=== PATIENT | male | born 1975 | race Caucasian/White ===

== ENCOUNTER → 2016-04-26 | Outpatient (CLI) | payer OTHER ==
[~2016-04-26] MED LIST: BUPR100T6 PO; IOHEXOL 180 MG/ML 10 ML VIAL. ONE; MELO-150 PO; SERT100T PO; methylPREDNISolone ACETATE 40 MG/ML VIAL. ONE; methylPREDNISolone ACETATE 80 MG/ML VIAL. ONE
--- NOTE | 2016-04-26 10:13 | PAIN ---
DATE OF SERVICE: 04/26/2016 PROGRESS NOTE DIAGNOSES: Lumbar radiculopathy with lumbar degenerative disk disease, lumbar spondylosis and post-lumbar laminectomy syndrome. HISTORY OF PRESENT ILLNESS: The patient is a 40-year-old male who returns for followup status post caudal approach epidural steroid injection x 1 on 04/12/2016. The patient reports he did very well about 50% improvement, still some pain in the low back and right leg, but only very minimal compared to what it was before. The patient reports his pain anywhere from a 2 to 4 on a scale of 10, increased his activity with greater ease and comfort during the day, is sleeping better at night, generally getting around with much more ease and ability. The patient reports no new motor or sensory deficits, no new bowel or bladder incontinence, is very pleased with his progress thus far, still has some significant pain, however, in the low back and right posterior gluteus and posterior thigh. The patient's old chart was reviewed as his current medication regimen updated. Current review of systems updated today as well. PHYSICAL EXAMINATION: VITAL SIGNS: Today, the patient's blood pressure is 160/92, pulse , respirations 18, temperature 97.6 degrees Fahrenheit, height is 5 feet 10 inches, and weighs 250 pounds. GENERAL: The patient is awake, alert, oriented, appropriate, very pleasant demeanor. HEENT: Shows normocephalic, atraumatic. Extraocular movements are intact and symmetrical. Oral cavity shows mucous membranes moist and pink. NECK: Shows anterior throat supple. Swallow reflex is symmetrical. CHEST: Shows breath sounds clear to auscultation bilaterally. HEART: Shows S1 and S2 clear. ABDOMEN: Soft, nontender, and nondistended. BACK: Shows spine grossly in midline. Well-healed surgical scar is noted in the lumbar distribution. Lumbar paraspinous musculature shows some moderate tenderness to palpation, but only diffusely bilaterally in the lower lumbar distribution and is symmetrical. LUNGS: No tenderness over the sacrum or sacroiliac regions. EXTREMITIES: Lower extremities show deep tendon reflexes 2+ in the patellar tendons. Motor exam is strong with 5/5 dorsiflexion and extension bilaterally. PLAN: Options were discussed with the patient. We will proceed with a second caudal approach epidural steroid injection today with fluoroscopic guidance. Risks were again discussed including, but not limited to bleeding, infection, possibility of epidural hematoma and subsequent neurologic compromise, dural puncture, headaches, spinal cord and/or nerve damage, side effects of steroid medication and poor results regarding pain control. The patient understands and wished to proceed. The patient will return to clinic in approximately 2 weeks for followup. He was counseled on his return appointment, activity level and side effects to be aware of. DIAGNOSES: Lumbar radiculopathy with lumbar degenerative disk disease, spondylosis and post-laminectomy syndrome. PROCEDURE: Caudal approach epidural steroid injection with fluoroscopic guidance under sterile prep and drape using local anesthetic. MEDICATIONS INJECTED: 120 mg of Depo-Medrol plus 10 mL of preservative-free normal saline and 2 mL of Isovue for contrast. CONDITION AT DISCHARGE: Stable. The patient tolerated the procedure well, had no complications. ASHLEY GARCIA MD DR: TRAM/mayra JOB#: [id number] / [id number]
== END | disposition home or self-care (01) ==
LOC: PNCL 08:53
PROVIDERS: ATTEND Anesthesiology
DX: M51.16 Intervertebral disc disorders with radiculopathy, lumbar region (principal); M47.896 Other spondylosis, lumbar region
CPT/HCPCS: 62311; J1030; J1040

== ENCOUNTER → 2016-08-25 | Outpatient (CLI) | payer OTHER ==
--- NOTE | 2016-08-25 10:09 | PN ---
DATE: 08/25/2016 PROGRESS NOTE FOR PAIN CLINIC DIAGNOSES: Lumbar radiculopathy with lumbar spondylosis, degenerative disk disease and post-lumbar laminectomy syndrome. HISTORY OF PRESENT ILLNESS: The patient is a 40-year-old male who returns for followup status post caudal approach epidural steroid injections x 2, last seen on 04/26/2016. The patient did very well with about a 90% improvement in the low back and left lower extremity pain. The patient reports over the past 3-4 weeks, the pain is beginning to return in the low back posterior hip laterally into the posterior thigh and into the posterolateral calf into the foot on the left side. The patient reports it aching, sharp, stabbing, tingling and becoming more constant. The patient rates it anywhere from a 5 to a 9 on a scale of 10, worse with activity. He has been doing better with lying down, although it is not waking him from sleep at night, better with sitting, worse with walking or standing. The patient has been trying to lose some weight. He has been getting more active and feels this may have had something to do with the increase in pain. He has been exercising and using a treadmill more often. The patient reports otherwise no new motor or sensory deficits, no new bowel or bladder incontinence or other complaints. PHYSICAL EXAMINATION: VITAL SIGNS: Today, the patient's blood pressure is 134/83, pulse 87, respirations are 20, temperature is 97.9 degrees Fahrenheit. Height is 5 feet 10 inches, weight is 239 pounds. GENERAL: The patient is awake, alert, oriented, appropriate, has a very pleasant demeanor. HEENT: Head shows normocephalic, atraumatic. Extraocular movements are intact and symmetrical. Oral cavity shows mucous membranes moist and pink. Dentition intact. NECK: Shows anterior throat supple without palpable lymphadenopathy noted. Swallow reflex is symmetrical. CHEST: Shows normal on inspection. Breath sounds are clear to auscultation bilaterally. HEART: Shows S1 and S2 clear. ABDOMEN: Soft, nontender, nondistended. No palpable organomegaly is noted. No rebound or guarding demonstrated. BACK: Shows spine grossly in the midline. Well-healed surgical scars noted in the lumbar distribution. Lumbar paraspinous musculature is symmetrical on inspection. With palpation it shows some very minor tenderness with palpation in the middle and low paraspinous musculature diffusely without radiation. EXTREMITIES: The patient's lower extremities showed deep tendon reflexes 2+ in the patellar, 1+ tendo calcaneus tendons are equal. Motor exam is strong with 5/5 dorsiflexion, extension, quadriceps and hamstring flexion and symmetrical. Options were discussed with the patient. We will proceed with a third in the series caudal approach epidural steroid injection with fluoroscopic guidance. Risks were again discussed including, but not limited to bleeding, infection, possibility of epidural hematoma, subsequent neurologic compromise, dural puncture, headaches, spinal cord and/or nerve damage, side effects of steroid medication and poor results regarding pain control. The patient understands and wishes to proceed. The patient will return to clinic in approximately 2 weeks for followup, was counseled on return appointment, activity level and side effects to be aware of. DIAGNOSES: Lumbar radiculopathy with lumbar spondylosis, degenerative disk disease and post-lumbar laminectomy syndrome. PROCEDURE: Caudal approach epidural steroid injection using C-arm fluoroscopic guidance under sterile prep and drape using local anesthetic. Medications injected is 120 mg Depo-Medrol plus 10 mL of preservative-free normal saline and 2 mL of Isovue for contrast. CONDITION AT DISCHARGE: Stable. The patient tolerated the procedure well, had no complications. ASHLEY GARCIA MD DR: TRAM/mayra JOB#: [id number] / [id number]
== END | disposition home or self-care (01) ==
LOC: PNCL 07:30
PROVIDERS: ATTEND Anesthesiology
DX: M51.16 Intervertebral disc disorders with radiculopathy, lumbar region (principal); M47.26 Other spondylosis with radiculopathy, lumbar region; M96.1 Postlaminectomy syndrome, not elsewhere classified
CPT/HCPCS: 62323; J1030; J1040

== ENCOUNTER → 2018-02-27 | Outpatient (CLI) | payer OTHER ==
[~2018-02-27] MED LIST changes: -MELO-150 PO; +MELO15TA23 PO
--- NOTE | 2018-02-28 00:34 | PAIN ---
DATE OF SERVICE: 02/27/2018 PROGRESS NOTE FOR PAIN CLINIC DIAGNOSES: Lumbar radiculopathy with lumbar degenerative disk disease and lumbar spondylosis and post-lumbar laminectomy syndrome. HISTORY OF PRESENT ILLNESS: The patient is a 42-year-old male who returns for followup status post caudal epidural steroid injection x 1 on 01/02/2018. The patient did very well about 80% improvement with day-to-day activities after that, riding motorcycle, also fell off of his roof out of his hammock and the pain returned fairly quickly by about a month ago. The patient reports pain is in the low back into the left side, left lower extremity, mostly in the posterior gluteus, posterior thigh, occasionally in the lower leg but mostly in the upper part of the leg. The patient reports it is aching, sharp, stabbing, tingling, shooting, constant, becoming more noticeable with walking, standing, changing positions, better with sitting down or lying but does awaken him from sleep occasionally if he is on his left side. The patient reports not every night. The patient reports his pain is an 8 on scale of 10 at its worst, it is from a 5 to an 8 on average and a 3 at its least and is a 7 today. The patient reports no new motor or sensory deficits and no new bowel or bladder incontinence or other complaints. PHYSICAL EXAMINATION: VITAL SIGNS: The patient's blood pressure 149/74, pulse is 96, respirations are 18 and temperature 98.1 degrees Fahrenheit. Height is 5 feet 10 inches and weight is 235 pounds. GENERAL: The patient is awake, alert, oriented, appropriate and very pleasant demeanor. HEENT: Head shows normocephalic and atraumatic. Extraocular movements are intact and symmetrical. Oral cavity: Mucous membranes moist and pink. Dentition is intact. NECK: Shows anterior throat supple without palpable lymphadenopathy noted. Swallow reflex symmetrical. CHEST: Shows normal on inspection. Breath sounds clear to auscultation bilaterally. HEART: Shows S1 and S2 clear. No murmurs auscultated. ABDOMEN: Soft, nontender and nondistended. No palpable organomegaly is noted. No rebound or guarding demonstrated. BACK: Shows spine grossly in the midline. Normal appearing thoracic kyphosis and minor flattening of the lumbar lordotic curvature with well-healed surgical scar noted. Lumbar paraspinous musculature shows symmetrical on inspection, with palpation shows some mild tenderness throughout the upper, middle, lower distribution of the paraspinous muscles but without radiation. EXTREMITIES: The patient's lower extremities show deep tendon reflexes 2+ in the patella, 1+ tendo-calcaneus tendons are equal. Motor exam is strong with 5/5 dorsiflexion, extension, quadriceps and hamstring flexion. Peripheral pulses are 1+, posterior tibia. No peripheral edema is noted bilaterally. Options were discussed with the patient. The patient's old chart was reviewed as well as his current medication regimen updated. Current review of systems updated today as well. We will proceed with a second in the series caudal approach epidural steroid injection today with fluoroscopic guidance. Risks were again discussed including, but not limited to bleeding, infection, possibility of epidural hematoma and subsequent neurological compromise, dural puncture, headaches, spinal cord and/or nerve damage, side effects of steroid medication and poor results regarding pain control. The patient understands and wished to proceed. The patient will return to the clinic in approximately 2 weeks for followup, was counseled as to return appointment, activity level and side effects to be aware of. DIAGNOSES: Lumbar radiculopathy with lumbar degenerative disk disease, lumbar spondylosis and post-lumbar laminectomy syndrome. PROCEDURE: Lumbar epidural steroid injection, caudal approach using C-arm fluoroscopic guidance under sterile prep and drape using local anesthetic. MEDICATION INJECTED: A total of 120 mg Depo-Medrol plus 10 mL of preservative-free normal saline and 2 mL of Isovue for contrast. CONDITION AT DISCHARGE: Stable. The patient tolerated the procedure well and had no complications. ASHLEY GARCIA MD DR: TRAM/mayra JOB#: [id number] / [id number]
== END | disposition home or self-care (01) ==
LOC: PNCL 12:55
PROVIDERS: ATTEND Anesthesiology
DX: M51.16 Intervertebral disc disorders with radiculopathy, lumbar region (principal); M96.1 Postlaminectomy syndrome, not elsewhere classified; M47.816 Spondylosis without myelopathy or radiculopathy, lumbar region; Z79.899 Other long term (current) drug therapy; Z98.890 Other specified postprocedural states
CPT/HCPCS: 62323; J1030; J1040; Q9965

== ENCOUNTER → 2018-04-04 | Outpatient (CLI) | payer OTHER ==
--- NOTE | 2018-04-04 18:34 | PAIN ---
DATE OF SERVICE: 04/04/2018 PROGRESS NOTE FOR PAIN CLINIC DIAGNOSES: Lumbar radiculopathy with lumbar degenerative disk disease and lumbar spondylosis with post-lumbar laminectomy syndrome. HISTORY OF PRESENT ILLNESS: The patient is a 42-year-old male who returns for followup status post caudal approach epidural steroid injections x 2. The patient reports approximately 70-80% improvement, still helping, but there is still some pain in the low back and left hip and leg as it was. The patient reports it is a 4-5 on a scale of 10 at its worst, 2-3 on average, 1-2 at its least and is a 3 today. The patient reports it is aching and sharp, sometimes tight, stabbing, constant, worse with walking and standing, better with sitting and lying down. Generally, it does not awaken him from sleep. He sleeps 7-8 hours at this time without difficulty. The patient reports he has increasing distance walking, able to do work activities, household activities and sleeping better since the last injection. The patient reports no new motor or sensory deficits, no new bowel or bladder incontinence or other complaints. PHYSICAL EXAMINATION: VITAL SIGNS: Blood pressure today is 150/89, pulse 90, respirations 16, temperature is 97.5 degrees Fahrenheit. Height is 5 feet 10 inches, weight is 234 pounds. GENERAL: The patient is awake, alert, oriented, appropriate, very pleasant demeanor. HEENT: Shows normocephalic, atraumatic. Extraocular movements intact and symmetrical. Oral cavity: Mucous membranes moist and pink. Dentition is intact. NECK: Shows anterior throat supple without palpable lymphadenopathy noted. Swallow reflex is symmetrical. CHEST: Shows normal on inspection. Breath sounds clear to auscultation bilaterally. HEART: Shows S1, S2 clear. No murmurs auscultated. ABDOMEN: Soft, nontender, nondistended. No palpable organomegaly is noted. No rebound or guarding demonstrated. BACK: Shows spine grossly in the midline. Normal appearing thoracic kyphosis and lumbar lordotic curvature. Lumbar curvature shows well-healed surgical scar. Lumbar paraspinous muscle shows symmetrical on inspection, with palpation shows some moderate tenderness diffusely throughout the middle and lower distribution only slightly, more on the left than the right, but is firm and symmetrical. No trigger points. No atrophy, hypertrophy. No radiation of pain bilaterally. The patient has good rotational motion of lumbar spine both laterally as well as extension and flexion without significant difficulty as well. EXTREMITIES: The patient's lower extremities show deep tendon reflexes at 2+ in the patellar, 1+ tendo calcaneus tendons. Motor exam is strong with 5/5 dorsiflexion, extension, quadriceps and hamstring flexion and symmetrical bilaterally. Peripheral pulses are 1+ posterior tibial. No peripheral edema is noted. Options were discussed with the patient. The patient's old chart was reviewed as his current medication regimen updated. Current review of systems updated today as well. We will proceed with a third in the series of caudal approach epidural steroid injection today with fluoroscopic guidance. Risks were again discussed including, but not limited to, bleeding, infection, possibility of epidural hematoma, subsequent neurological compromise, dural punctures, headaches, spinal cord and/or nerve damage, side effects of steroid medication and poor results regarding pain control. The patient understands and wished to proceed. The patient will return to the clinic in approximately 2 weeks for followup. He was counseled on his return appointment, activity level and side effects to be aware of. DIAGNOSIS: Lumbar radiculopathy with lumbar degenerative disk disease, lumbar spondylosis and post-lumbar laminectomy syndrome. PROCEDURE: Lumbar epidural steroid injection, caudal approach using C-arm fluoroscopic guidance under sterile prep and drape using local anesthetic. MEDICATION INJECTED: A total of 120 mg Depo-Medrol plus 10 mL of preservative-free normal saline and 2 mL of Isovue for contrast. CONDITION AT DISCHARGE: Stable. The patient tolerated the procedure well, had no complications. ASHLEY GARCIA MD DR: TRAM/mayra JOB#: [id number] / [id number]
== END | disposition home or self-care (01) ==
LOC: PNCL 14:14
PROVIDERS: ATTEND Anesthesiology
DX: M51.16 Intervertebral disc disorders with radiculopathy, lumbar region (principal); M47.26 Other spondylosis with radiculopathy, lumbar region; M96.1 Postlaminectomy syndrome, not elsewhere classified
CPT/HCPCS: 62323; J1030; J1040; Q9965

== ENCOUNTER → 2018-07-25 | Outpatient (CLI) | payer OTHER ==
--- NOTE | 2018-07-25 22:35 | PAIN ---
DATE OF SERVICE: 07/25/2018 DIAGNOSES: Lumbar radiculopathy with lumbar degenerative disk disease, lumbar spondylosis and post-lumbar laminectomy syndrome. HISTORY OF PRESENT ILLNESS: The patient is a 42-year-old male who returns for followup status post caudal epidural steroid injection x 3, last seen 04/04/2018. The patient did very well with this with about a 60% improvement overall. The patient reports still pain returning in the low back and mostly in the left side, left lower extremity, posterior gluteus, posterior thigh and calf. The patient reports he has pain in the left foot as well, which is aching, sharp, stabbing, becoming more constant, more severe and unbearable at times, worse with walking, standing, change in positions. The patient reports did very well for several weeks after the injections, but the pain has returned now over the past month or so. The patient reports the pain is 8-9 on a scale of 10 at its worst, 6-8 on average and is a 6-7 at its least and is a 7 today. The patient reports no new motor or sensory deficits, no new bowel or bladder incontinence. Initially, he was walking better distances, able to do work activities, household activities with greater ease and comfort, traveling with greater ease as well. Still doing well, sleeping well at night, does not bother him from sleep, does not limit him in his activity significantly. He has been putting up with the pain as well while he is working. The patient reports no new motor or sensory deficits, no new bowel or bladder incontinence or other complaints. PHYSICAL EXAMINATION: VITAL SIGNS: The patient's blood pressure is 138/77, pulse is 71, respirations 18, temperature 98.2 degrees Fahrenheit, height is 5 feet 10 inches, weighs 225 pounds. GENERAL: The patient is awake, alert, oriented, appropriate, very pleasant demeanor. HEENT: Shows normocephalic, atraumatic. Extraocular movements are intact and symmetrical. Oral cavity: Mucous membranes moist and pink. Dentition is intact. NECK: Shows anterior throat supple without palpable lymphadenopathy noted. Swallow reflex symmetrical. CHEST: Shows normal with inspection. Breath sounds clear to auscultation bilaterally. HEART: Shows S1, S2 clear. No murmurs auscultated. ABDOMEN: Soft, nontender, nondistended. No palpable organomegaly is noted. No rebound or guarding demonstrated. BACK: Shows spine grossly in the midline, normal-appearing thoracic kyphosis and minor flattening of lumbar lordotic curvature. Well-healed surgical scar noted in the lumbar distribution. Lumbar paraspinous muscle shows symmetrical on inspection and with palpation shows some moderate tenderness diffusely, but without significant radiation. The patient has good rotational motion of lumbar spine, both laterally as well as extension and flexion without significant difficulty. EXTREMITIES: The patient's lower extremities show deep tendon reflexes 2+ in the patellar, 1+ tendo-calcaneus tendons. Motor exam is strong with 5/5 dorsiflexion, extension, quadriceps and hamstring flexion and symmetrical as well. The patient's peripheral pulses are 1+ posterior tibia. No peripheral edema is noted. Options were discussed with the patient. The patient's old chart was reviewed as his current medication regimen updated. Current review of systems updated today as well. We will proceed with a first in this series caudal approach epidural steroid injection today with fluoroscopic guidance. Risks were again discussed including, but not limited to bleeding, infection, possibility of epidural hematoma and subsequent neurological compromise, dural puncture, headaches, spinal cord and/or nerve damage, side effects of steroid medication and poor results regarding pain control. The patient understands and wished to proceed. The patient will return to clinic in approximately 2 weeks for followup. He was counseled as to return appointment, activity level and side effects to be aware of. DIAGNOSES: Lumbar radiculopathy with lumbar degenerative disk disease, lumbar spondylosis, post-lumbar laminectomy syndrome. PROCEDURE: Caudal approach epidural steroid injection using C-arm fluoroscopic guidance under sterile prep and drape using local anesthetic. MEDICATION INJECTED: A total of 120 mg Depo-Medrol plus 10 mL of preservative-free normal saline and 2 mL of contrast. CONDITION AT DISCHARGE: Stable. The patient tolerated the procedure well, had no complications. ASHLEY GARCIA MD DR: TRAM/mayra JOB#: [id number] / [id number]
== END | disposition home or self-care (01) ==
LOC: PNCL 08:27
PROVIDERS: ATTEND Anesthesiology
DX: M51.16 Intervertebral disc disorders with radiculopathy, lumbar region (principal); M96.1 Postlaminectomy syndrome, not elsewhere classified; M47.26 Other spondylosis with radiculopathy, lumbar region
CPT/HCPCS: 62323; J1030; J1040; Q9965

== ENCOUNTER → 2019-03-12 | Outpatient (CLI) | payer OTHER ==
[~2019-03-12] MED LIST changes: +CELE100C PO; +LISI-338 PO; +LORA0.5T96 PO
--- NOTE | 2019-03-13 02:26 | PAIN ---
DATE OF SERVICE: 03/12/2019 PROGRESS NOTE FOR PAIN CLINIC DIAGNOSES: Lumbar radiculopathy with lumbar degenerative disk disease, lumbar spondylosis and post-lumbar laminectomy syndrome. HISTORY OF PRESENT ILLNESS: The patient is a 43-year-old male who returns for followup status post lumbar epidural steroid injection, caudal approach, last seen 10/03/2018. The patient reports he did fairly well with about a 50% improvement overall, about 75-80% for the first 2 days and then tapered off to about 50% for about a month or so after the injection. The patient reports the pain has returned now over the rest of the summer and into the fall in the low back, left lower extremity, posterior gluteus, radiating to posterior thigh, posterior calf into the foot on the left side. The patient reports his back was tight and he had a friend pop his back with some increased numbness and tingling in his left toes now and an increasing pain in his leg. The patient reports the pain is a 10 on a scale of 10 at its worst over the past week, 8-10 on average and a 6-7 at its least and is a 7 today. The patient reports no other changes, no new motor or sensory deficits, no bowel or bladder incontinence or other complaints. PHYSICAL EXAMINATION: VITAL SIGNS: The patient's blood pressure 154/102, pulse 69, respirations are 16, temperature 98.2 degrees Fahrenheit, height is 5 feet 10 inches and weight is 238 pounds. GENERAL: The patient is awake, alert, oriented, appropriate, very pleasant demeanor. HEENT: Shows normocephalic, atraumatic. Extraocular movements are intact and symmetrical. Oral cavity shows mucous membranes are moist and pink. Dentition is intact. NECK: Shows anterior throat supple without palpable lymphadenopathy noted. Swallow reflex symmetrical. CHEST: Shows normal on inspection. Breath sounds clear to auscultation bilaterally. HEART: Shows S1, S2 clear. No murmurs auscultated. ABDOMEN: Soft, nontender, nondistended. No palpable organomegaly is noted. No rebound or guarding demonstrated. BACK: Shows spine grossly in the midline. Normal appearing thoracic kyphosis and flattening of lumbar lordotic curvature with well-healed surgical scar noted. Lumbar paraspinous muscle shows symmetrical on inspection, with palpation shows some moderate tenderness diffusely bilaterally going diffusely without radiation. EXTREMITIES: The patient's lower extremities show deep tendon reflexes 2+ in the patellar tendon and 1+ tendo calcaneus tendons. Motor exam is strong with 5/5 dorsiflexion, extension, quadriceps and hamstring flexion and symmetrical. Peripheral pulses are 1+ posterior tibia. No peripheral edema is noted bilaterally. Options were discussed with the patient. The patient's old chart was reviewed as his current medication regimen updated. Current review of systems updated today as well and we will proceed with a first in this series caudal epidural steroid injection today with fluoroscopic guidance. Risks were again discussed including, but not limited to bleeding, infection, possibility of epidural hematoma, subsequent neurological compromise, dural puncture, headaches, spinal cord and/or nerve damage, side effects of steroid medication and poor results regarding pain control. The patient understands and wished to proceed. The patient will return to clinic in approximately 2 weeks for followup. He was counseled on return appointment, activity level and side effects to be aware of. DIAGNOSES: Lumbar radiculopathy with lumbar degenerative disk disease and lumbar spondylosis, post-lumbar laminectomy syndrome. PROCEDURE: Lumbar epidural steroid injection, caudal approach using C-arm fluoroscopic guidance under sterile prep and drape using local anesthetic. MEDICATION INJECTED: A total of 120 mg Depo-Medrol plus 10 mL of preservative-free normal saline and 2 mL of contrast. CONDITION AT DISCHARGE: Stable. The patient tolerated procedure well, had no complications. ASHLEY GARCIA MD DR: TRAM/mayra JOB#: [id number] / [id number]
== END ==
LOC: PNCL 14:05
PROVIDERS: ATTEND Anesthesiology
DX: M51.16 Intervertebral disc disorders with radiculopathy, lumbar region (principal); M96.1 Postlaminectomy syndrome, not elsewhere classified; M47.816 Spondylosis without myelopathy or radiculopathy, lumbar region
CPT/HCPCS: 62323; J1030; J1040; Q9965

== ENCOUNTER → 2019-03-20 | Outpatient (CLI) | payer OTHER ==
[~2019-03-20] MED LIST changes: +GADOTERATE 7.5 MMOL/15ML VIAL. IVP ONE; -IOHEXOL 180 MG/ML 10 ML VIAL. ONE; -methylPREDNISolone ACETATE 40 MG/ML VIAL. ONE; -methylPREDNISolone ACETATE 80 MG/ML VIAL. ONE
--- NOTE | 2019-03-20 12:28 | KCIC ---
MRI Lumbar Spine without and with contrast History: Lumbar radiculopathy, previous surgery, low back pain, left hip pain, left leg numbness Technique: Multiplanar, multi sequential pre and postcontrast MR imaging was performed of the lumbar spine. Comparison: None Findings: Lumbar vertebral body stature is maintained. AP alignment is within normal limits. There is straightening of the lumbar spine. There is [id number] degenerative disc disease L5-S1 and minimally L3-4 and L4-5. Conus terminates at L1-2. There is no nodular enhancement conus or cauda equina, no enhancement in the intervertebral spaces. There are posterior annular tears L3-4 through L5-S1. There is somewhat diffuse narrowing of the lumbar spinal canal on a developmental basis. L1-L2: Spinal canal and neural foramina are adequate. L2-L3: Neural foramina and spinal canal are adequate. There is minimal buckling of the ligamentum flavum. L3-L4: There is very minimal disc osteophyte complex. Neural foramina and spinal canal are adequate. L4-L5: There is minimal disc osteophyte complex and shallow protrusion about 2 mm AP, more eccentric to left lateral recess. There is minimal buckling of the ligamentum flavum. There is moderate left lateral recess stenosis and contact descending left L5 nerve root. Neural foramina are adequate. Shallow protrusion is near the undersurface of proximal extraforaminal right L4 nerve root without displacement. L5-S1: There is left laminectomy defect. There is disc osteophyte complex, near the descending left S1 nerve root without displacement. There is mild narrowing of the left neural foramen, right neural foramen adequate. Impression: 1. There is moderate left lateral recess stenosis at L4-5 by disc osteophyte complex and protrusion contacting the descending left L5 nerve root. There is also disc osteophyte complex at L5-S1 near the descending left S1 nerve root without displacement. 2. There is [id number] L5-S1 degenerative disc disease, minimally at L4-5 and L3-4. Electronically signed by: Darrin Crawford MD (03/20/2019 12:25 PM) [id number]
== END | disposition home or self-care (01) ==
LOC: KCIC MRI 09:01
PROVIDERS: ATTEND Anesthesiology
DX: M51.16 Intervertebral disc disorders with radiculopathy, lumbar region (principal); M96.1 Postlaminectomy syndrome, not elsewhere classified; M25.78 Osteophyte, vertebrae; Z98.890 Other specified postprocedural states
CPT/HCPCS: 72158; A9575